=== PATIENT | male | born 1970 | race American Indian/Alaskan Native ===

== ENCOUNTER 2018-03-03 22:41 | Emergency (ER) | payer BC, MEDICAID, OTHER ==
--- NOTE | 2018-03-03 22:50 | EDM.PDOC ---
ED HPI GENERAL MEDICAL PROBLEM - General Chief Complaint: Laceration Stated Complaint: CUT FINGER [id number] Time Seen by Provider: 03/03/18 23:10 Source of Information: Reports: Patient, RN Notes Reviewed History Limitations: Reports: No Limitations - History of Present Illness INITIAL COMMENTS - FREE TEXT/NARRATIVE: ED with c/o cut to finger wont quit bleeding. Reports cutting left ring finger on pice of sheet metal around noon today. Has continued to work throughout day but estimates this afternoon changed battery at least 25 times. Left 4-Ring finger Pain Score (Numeric/FACES): 8 - Related Data Allergies Allergy/AdvReac Type Severity Reaction Status Date / Time ibuprofen Allergy Rash Verified 03/03/18 22:49 Macrolide Antibiotics Allergy Rash Verified 03/03/18 22:49 sertraline HCl [From Zoloft] Allergy Rash Verified 03/03/18 22:49 Home Meds: Home Meds Venlafaxine [Effexor XR] 1 tab PO DAILY 10/08/15 [History] ALPRAZolam [Xanax] 1 tab PO TID 03/03/18 [History] Past Medical History Psychiatric History: Reports: Anxiety - Past Surgical History GI Surgical History: Reports: Appendectomy, Cholecystectomy Other Musculoskeletal Surgeries/Procedures:: ankle surgery Social & Family History - Family History Family Medical History: Noncontributory ED ROS GENERAL - Review of Systems Review Of Systems: ROS reveals no pertinent complaints other than HPI. ED EXAM, SKIN/RASH Exam: See Below Exam Limited By: No Limitations General Appearance: Alert, Mild Distress Ears: Normal External Exam Nose: Normal Inspection Throat/Mouth: Normal Inspection Head: Atraumatic, Normocephalic Respiratory/Chest: No Respiratory Distress, Lungs Clear Cardiovascular: Normal Peripheral Pulses, Regular Rate, Rhythm Extremities: Normal Range of Motion Neurological: Alert, Oriented, Normal Cognition Psychiatric: Normal Affect, Normal Mood Skin: Warm, Dry. No: Intact Location, Skin: Upper Extremity, Left, Other (flap laceration to left medial ring finger) ED SKIN PROCEDURES - Laceration/Wound Repair Left Middle Flank Lac/Wound length In cm: 1 Appearance: Subcutaneous Local Anesthesia - Lidocaine (Xylocaine): 1% Plain Local Anesthetic Volume: 1cc Skin Prep: Chlorhexidine (Hibiciens), Saline Exploration/Debridement/Repair: No Foreign Material Found Drain Placement: No Sterile Dressing Applied: Other (upper flap non vascular tissue removed,) Tetanus Status Addressed: Yes Complications: No Progress/Comments: steril dressing with bacitracin telfa and tube gauze. Course - Vital Signs Last Recorded V/S: Last Vital Signs Temp 99.2 F 03/03/18 22:51 Pulse 83 03/03/18 22:51 Resp 17 03/03/18 22:51 BP 121/85 03/03/18 22:51 Pulse Ox 98 03/03/18 22:51 - Orders/Labs/Meds Orders: Active Orders 24 hr Category Date Time Status Vaccines to be Administered [RC] PER UNIT ROUTINE Care 03/03/18 23:15 Active Meds: Medications Discontinued Medications Generic Name Dose Route Start Last Admin Trade Name Hilario PRN Reason Stop Dose Admin Bacitracin 1 dose 03/03/18 23:15 03/03/18 23:26 Bacitracin Oint 1 Gm TOP 03/03/18 23:16 1 dose ONETIME ONE Administration Diphtheria/Tetanus/Acell Pertussis 0.5 ml 03/03/18 23:15 03/03/18 23:25 Adacel IM 03/03/18 23:16 0.5 ml .ONCE ONE Administration Lidocaine HCl 30 ml 03/03/18 23:15 03/03/18 23:26 Xylocaine-Mpf 1% INJECT 03/03/18 23:16 30 ml ONETIME ONE Administration Departure - Departure Time of Disposition: 23:57 Disposition: Home, Self-Care 01 Condition: Good Clinical Impression: Laceration - Discharge Information Instructions: Deep Skin [facility] Referrals: PCP,None [Ordering Only Provider] - Forms: ED Department Discharge Additional Instructions: change dressing tomorrow leeroy, keep wound clean and dry, cover with antibiotic ointment and dressing wash at least twice daily with soap and water monitor and follow up if any sign of infection, redness or drainage. - My Orders Last 24 Hours: My Active Orders 03/03/18 23:15 Vaccines to be Administered [RC] PER UNIT ROUTINE - Assessment/Plan Last 24 Hours: My Active Orders 03/03/18 23:15 Vaccines to be Administered [RC] PER UNIT ROUTINE
[2018-03-03 22:52] VITALS: BP 121/85
[2018-03-03] MEDS ORDERED: Bacitracin Oint 1 GM U/D Packet TOP ONE (23:15)
[2018-03-03] MEDS ORDERED: Lidocaine 1% 30 ML SDV INJECT ONE (23:15)
[2018-03-03] MEDS ORDERED: Diphtheria,Pertussis(Acell),Tetanus Vaccine 0.5 ML SDV IM ONE (23:15)
== END 2018-03-04 00:04 | disposition home or self-care (01) ==
LOC: DL.ED 22:41
DX: S61.215A Laceration without foreign body of left ring finger without damage to nail, initial encounter (principal); Z88.6 Allergy status to analgesic agent; Z88.8 Allergy status to other drugs, medicaments and biological substances; Z23 Encounter for immunization; Z79.899 Other long term (current) drug therapy; W26.8XXA Contact with other sharp object(s), not elsewhere classified, initial encounter
CPT/HCPCS: 90471; 90715; 99282

== ENCOUNTER 2025-06-14 06:54 | Day surgery (SDC) | payer MEDICAID ==
[~2025-06-14 06:54] MED LIST: Propofol 200 MG/20 ML SDV ONE
[2025-06-14] MEDS ORDERED: Lactated Ringers 1,000 ML IV ONE (06:55)
[2025-06-14] MEDS ORDERED: Propofol 200 MG/20 ML SDV IV ONE (06:55)
[2025-06-14] MEDS: Lactated Ringers 1,000 ML IV SCH (07:28)
[2025-06-14] MEDS ORDERED: Propofol 200 MG/20 ML SDV ONE (07:44)
[2025-06-14 09:05] VITALS: BP 138/74; PULSE 58
== END 2025-06-14 09:20 | disposition home or self-care (01) ==
LOC: DL.ENDO 06:54
PROVIDERS: ATTEND Internal Medicine Gastroenterology
DX: K29.40 Chronic atrophic gastritis without bleeding (principal); K31.A19 Gastric intestinal metaplasia without dysplasia, unspecified site; F41.9 Anxiety disorder, unspecified; Z88.8 Allergy status to other drugs, medicaments and biological substances; Z79.899 Other long term (current) drug therapy
CPT/HCPCS: 00731; 43239; J2704; J7120

== ENCOUNTER 2025-06-18 05:29 | Day surgery (SDC) | payer MEDICAID ==
[2025-06-18] MEDS ORDERED: Lactated Ringers 1,000 ML IV ONE (05:30)
[2025-06-18] MEDS ORDERED: Propofol 200 MG/20 ML SDV IV ONE (05:30)
[2025-06-18] MEDS ORDERED: Propofol 200 MG/20 ML SDV ONE ×2 (05:42→06:28)
[2025-06-18] MEDS: Lactated Ringers 1,000 ML IV SCH (05:45)
[2025-06-18 07:43] VITALS: BP 135/91; PULSE 51
== END 2025-06-18 08:17 | disposition home or self-care (01) ==
LOC: DL.ENDO 05:29
PROVIDERS: ATTEND Internal Medicine Gastroenterology
DX: Z12.11 Encounter for screening for malignant neoplasm of colon (principal); D12.4 Benign neoplasm of descending colon; K57.30 Diverticulosis of large intestine without perforation or abscess without bleeding; E66.9 Obesity, unspecified; Z88.8 Allergy status to other drugs, medicaments and biological substances; Z68.30 Body mass index [BMI] 30.0-30.9, adult; Z79.899 Other long term (current) drug therapy
CPT/HCPCS: 00811; 45385; J7120; J2003; J2704